=== PATIENT | female | born 1985 | race Caucasian/White ===

== ENCOUNTER 2019-11-22 04:00 | Inpatient (IN) | payer MEDICAID ==
[~2019-11-22] VITALS: Ht 152.4 cm; Wt 98.9 kg
[2019-11-22] MEDS ORDERED: LR 500 ML IV ONE ×2 (04:36→10:48)
[2019-11-22] MEDS ORDERED: TERBUTALINE SULFATE 1 MG/ML VIAL SUBCUT ONE (04:45)
[2019-11-22 05:51] LABS: BASOPHILS % (AUTO) 0.4 % (0.0-2.0); EOSINOPHILS % (AUTO) 0.5 % (0.0-4.0); HEMATOCRIT 34.6 % (36-48); HEMOGLOBIN 11.5 g/dL (12.0-16.0); LYMPHOCYTES # (AUTO) 2.2 K/uL (1.0-5.5); LYMPHOCYTES % (AUTO) 24.7 % (20.5-51.5); MEAN CORPUSCULAR HEMOGLOBIN 29 pg (27-31); MEAN CORPUSCULAR HGB CONC 33 % (32-36); MEAN CORPUSCULAR VOLUME 88 fL (79.0-98.0); MONOCYTES # (AUTO) 0.8 K/uL (0.0-1.0); MONOCYTES % (AUTO) 8.5 % (1.7-9.3); NEUTROPHILS % (AUTO) 65.9 % (40.0-70.0); PLATELET COUNT (AUTO) 168 K/uL (130-430); RED BLOOD CELL COUNT(AUTO) 3.95 MIL/uL (4.2-6.2); RED CELL DISTRIBUTION WIDTH 13.5 % (9.0-15.0); WHITE BLOOD COUNT (AUTO) 9.1 K/uL (4.8-10.8)
[2019-11-22] MEDS: LR 1,000 ML IV SCH ×2 (06:21→08:17)
[2019-11-22] MEDS ORDERED: fentaNYL CITRATE/PF 100 MCG/2 ML AMP ONE (07:42)
[2019-11-22] MEDS ORDERED: ROPIVACAINE HCL/PF 0.2% 200 ML ONE (07:42)
[2019-11-22] MEDS: OXYTOCIN/0.9 % SODIUM CHLORIDE 1,000 ML IV SCH ×2 (08:16→14:56)
[2019-11-22] MEDS ORDERED: FENT2mCg/mL-ROPIVA0.2%/NS EPID 200 ML EP SCH (11:00)
[2019-11-22] MEDS ORDERED: OXYTOCIN/0.9 % SODIUM CHLORIDE 1,000 ML IV ONE (13:50)
[2019-11-22] MEDS ORDERED: OXYTOCIN/0.9 % SODIUM CHLORIDE 1,000 ML IV SCH (13:50)
[2019-11-22] MEDS ORDERED: OXYCODONE/ACETAMINOPHEN 5-325 TABLET PO PRN ×2 (14:00)
[2019-11-22] MEDS ORDERED: WITCH HAZEL LEAF 1 MED.PAD MED.PAD TP PRN (14:00)
[2019-11-22] MEDS ORDERED: RHO(D) IMMUNE GLOBULIN/MALTOSE 1500 UNITS/1.3 ML (WINHRO) IM PRN (14:00)
[2019-11-22] MEDS ORDERED: ANUSOL 1 EA SUPP.RECT (PREPARATION H) RC PRN (14:00)
[2019-11-22] MEDS ORDERED: DERMOPLAST SPRAY TP PRN (14:00)
[2019-11-22] MEDS ORDERED: SENNOSIDES/DOCUSATE SODIUM 1 TAB TABLET(SENOKOT-S) PO PRN (14:00)
[2019-11-22] MEDS ORDERED: DOCUSATE SODIUM 100 MG CAPSULE PO PRN (14:00)
[2019-11-22] MEDS ORDERED: HYDROCORTISONE 0.5%, 28.35 GM TOPICAL CREAM TP PRN (14:00)
[2019-11-22] MEDS ORDERED: LANOLIN 7 GM OINT. TP PRN (14:00)
[2019-11-22] MEDS ORDERED: METHYLERGONOVINE MALEATE 0.2 MG TABLET PO PRN (14:00)
[2019-11-22] MEDS ORDERED: MEASLES,MUMPS&RUBELLA VACC/PF 12500 UNIT/0.5 ML VIAL SUBQ PRN (14:00)
[2019-11-22] MEDS ORDERED: DIPH-TET-PERTUS Vaccine 0.5 ML VIAL (ADACEL) I.M. PRN (14:00)
[2019-11-22] MEDS ORDERED: METHYLERGONOVINE MALEATE 0.2 MG/ML AMP ONE (14:06)
[2019-11-22] MEDS ORDERED: OXYTOCIN 10 UNIT/ML VIAL ONE ×2 (14:11)
[2019-11-22] MEDS ORDERED: OXYTOCIN 10 UNIT/ML VIAL IM ONE (15:00)
[2019-11-22] MEDS ORDERED: OXYTOCIN 10 UNIT/ML VIAL IV ONE (15:00)
[2019-11-22] MEDS ORDERED: METHYLERGONOVINE MALEATE 0.2 MG/ML AMP IM ONE (15:00)
[2019-11-22] MEDS: IBUPROFEN 600 MG TABLET PO SCH ×2 (17:58→23:49)
[2019-11-22] MEDS ORDERED: TEMAZEPAM 15 MG CAPSULE PO PRN (21:00)
[2019-11-23] MEDS: IBUPROFEN 600 MG TABLET PO SCH ×2 (06:07→12:20)
[2019-11-23 06:33] LABS: BASOPHILS # (AUTO) 0.1 K/uL (0.0-0.2); BASOPHILS % (AUTO) 0.6 % (0.0-2.0); EOSINOPHILS # (AUTO) 0.1 K/uL (0.0-0.4); EOSINOPHILS % (AUTO) 0.5 % (0.0-4.0); HEMATOCRIT 28.5 % (36-48); HEMOGLOBIN 9.2 g/dL (12.0-16.0); LYMPHOCYTES # (AUTO) 3.3 K/uL (1.0-5.5); LYMPHOCYTES % (AUTO) 22.4 % (20.5-51.5); MEAN CORPUSCULAR HEMOGLOBIN 29 pg (27-31); MEAN CORPUSCULAR HGB CONC 32 % (32-36); MEAN CORPUSCULAR VOLUME 89 fL (79.0-98.0); MONOCYTES # (AUTO) 1.2 K/uL (0.0-1.0); NEUTROPHILS % (AUTO) 68.5 % (40.0-70.0); PLATELET COUNT (AUTO) 144 K/uL (130-430); RED BLOOD CELL COUNT(AUTO) 3.19 MIL/uL (4.2-6.2); RED CELL DISTRIBUTION WIDTH 13.7 % (9.0-15.0)
[2019-11-23 07:09] LABS: WHITE BLOOD COUNT (AUTO) 14.6 K/uL (4.8-10.8)
[2019-11-23] MEDS ORDERED: FLU VACC QS2019-20 36MOS UP/PF 60 MCG/0.5 ML SYRINGE I.M. PRN (10:00)
[2019-11-23] MEDS ORDERED: MINERAL OIL 30 ML UDC PO ONE (13:46)
--- NOTE | 2019-11-23 16:21 | NUR ---
Dietitian Recommendations - Recommend diet advancement to regular diet if/when medically applicable. Please see Nutrition Assessment for details. [email or web address] [email or web address]
== END 2019-11-23 18:15 | disposition home or self-care (01) | DRG 560 ==
LOC: SPU 04:00
PROVIDERS: ADMIT Obstetrics & Gynecology; ATTEND Obstetrics & Gynecology
PROC: 10E0XZZ Delivery of Products of Conception, External Approach (ICD-10-PCS; principal; 2019-11-22)
PROC: 3E0R3BZ Introduction of Anesthetic Agent into Spinal Canal, Percutaneous Approach (ICD-10-PCS; 2019-11-22)
PROC: 00HU33Z Insertion of Infusion Device into Spinal Canal, Percutaneous Approach (ICD-10-PCS; 2019-11-22)
DX: O69.81X0 Labor and delivery complicated by cord around neck, without compression, not applicable or unspecified (principal); O69.2XX0 Labor and delivery complicated by other cord entanglement, with compression, not applicable or unspecified; Z37.0 Single live birth; Z3A.40 40 weeks gestation of pregnancy
CPT/HCPCS: 36415; 85025; 86592; 86886; 86900; 86901; J2210; J2590; J3010